=== PATIENT | female | born 1965 | race Caucasian/White ===

== ENCOUNTER 2023-07-09 12:22 | Outpatient (CLI) | payer OTHER | END 2023-07-09 12:23 | disposition home or self-care (01) | LOC: RAD 12:22 | PROVIDERS: ATTEND Nurse Practitioner Family | DX: J45.909 Unspecified asthma, uncomplicated (principal); M54.9 Dorsalgia, unspecified; R09.89 Other specified symptoms and signs involving the circulatory and respiratory systems | CPT/HCPCS: 71046 ==

== ENCOUNTER 2024-06-23 09:06 | Outpatient (CLI) | payer BC ==
[2024-06-23 10:37] LABS: #Basophils 0.03 10x3/uL (0.0-0.2); %Basophils 0.5 % (0.0-1.0); %Eosinophils 3.1 % (0.0-10.0); %Monocytes 7.2 % (0.0-10.0); Hematocrit 38.3 % (36.0-47.0); Hemoglobin 12.7 g/dL (12.0-16.0); Mean Corpuscular HGB CONC 33.2 g/dL (32.0-36.0); Mean Corpuscular Hemoglobin 29.4 pg (27.0-31.0); Mean Corpuscular Volume 88.7 fL (78.0-98.0); Mean Platelet Volume 9.8 fL (7.4-10.4); Platelet Count 288 10x3/uL (130-400); RBC Distribution Width 12.7 % (11.5-14.5); Red Blood Cell (RBC) Count 4.32 mill/uL (4.20-5.40)
[2024-06-23 10:55] LABS: INR-International Normal Ratio 0.9; PTT 30.7 sec (22.9-36.1); Prothrombin Time 12.5 sec (12.0-14.7)
[2024-06-23 11:03] LABS: ALT (SGPT) 25 U/L (8-55); AST (SGOT) 26 U/L (5-34); Albumin 4.2 g/dL (3.5-5.0); Alkaline Phosphatase 80 U/L (40-110); Anion Gap 9 mmol/L (10-20); BUN (Urea Nitrogen) 13 mg/dL (9.8-20.1); Bilirubin, Direct 0.1 mg/dL (0.1-0.3); Bilirubin, Total 0.4 mg/dL (0.2-1.2); Calc. Creatinine Clearance 0 mL/min (70-130); Calcium 9.3 mg/dL (7.8-10.44); Carbon Dioxide 30 mmol/L (22-29); Chloride 105 mmol/L (98-107); Estimated GFR 85; Glucose 95 mg/dL (70-105); Potassium 4.1 mmol/L (3.5-5.1); Protein, Total 6.8 g/dL (6.0-8.3); Sodium 140 mmol/L (136-145)
== END 2024-06-23 09:07 | disposition home or self-care (01) ==
LOC: LABBT 09:06
PROVIDERS: ATTEND Neurological Surgery
DX: Z01.818 Encounter for other preprocedural examination (principal); M54.12 Radiculopathy, cervical region
CPT/HCPCS: 80048; 80076; 85025; 85610; 85730; 93005; 93010

== ENCOUNTER 2024-06-30 05:42 | Day surgery (SDC) | payer BC ==
[2024-06-23 09:28] VITALS: BMI 28.5
[2024-06-30] MEDS ORDERED: Thrombin 5000 UNITS/5 ML VIAL ONE (06:10)
[2024-06-30] MEDS ORDERED: Rocuronium Bromide 10 MG/ML (10ML VIAL) ONE (06:46)
[2024-06-30] MEDS ORDERED: Lidocaine 1% PF 5 ML VIAL ONE (06:46)
[2024-06-30] MEDS ORDERED: fentaNYL PF 100 MCG/2 ML SYRINGE ONE (06:46)
[2024-06-30] MEDS ORDERED: PROPOFOL 20 ML ONE (06:46)
[2024-06-30] MEDS ORDERED: Ketamine In 0.9 % NaCl 50 MG/5 ML SYRINGE ONE (06:51)
[2024-06-30] MEDS ORDERED: Midazolam HCl 2 mg/2 ml Vial ONE (06:54)
[2024-06-30] MEDS ORDERED: Clindamycin/D5W 900 mg/50 ml Premix Bag ONE (06:54)
[2024-06-30] MEDS ORDERED: LevoFLOXacin D5W 500 mg (100 mL) BAG ONE (06:54)
[2024-06-30] MEDS ORDERED: Glycopyrrolate 0.2 MG/ML 5 ML SYRINGE ONE (07:10)
[2024-06-30] MEDS ORDERED: PHENYLEPHRINE-NS 100 MCG/ML 10 ML SYRINGE ONE (07:15)
[2024-06-30] MEDS ORDERED: Dexamethasone 20 MG/5 ML VIAL ONE (07:35)
[2024-06-30] MEDS ORDERED: Ondansetron PF 4 MG/2 ML Vial ONE (07:35)
[2024-06-30] MEDS ORDERED: SUGAMMADEX SODIUM 200 MG/2 ML VIAL ONE (08:17)
[2024-06-30] MEDS ORDERED: fentaNYL 50 mcg/mL 1 mL Vial ONE ×2 (08:45→09:33)
[2024-06-30] MEDS ORDERED: Cyclobenzaprine 10 MG TAB ONE (08:46)
[2024-06-30] MEDS ORDERED: HYDROmorphone 0.5 MG/0.5 ML SYRINGE ONE ×2 (08:46→09:19)
[2024-06-30] MEDS ORDERED: HYDROcodone/Acetaminophen 5/325 mg Tablet ONE (11:01)
== END 2024-06-30 11:20 | disposition home or self-care (01) ==
LOC: SDC 05:42
PROVIDERS: ATTEND Neurological Surgery
PROC: 0RG10A0 Fusion of Cervical Vertebral Joint with Interbody Fusion Device, Anterior Approach, Anterior Column, Open Approach (ICD-10-PCS; principal; 2024-06-30)
PROC: 0RB30ZZ Excision of Cervical Vertebral Disc, Open Approach (ICD-10-PCS; principal; 2024-06-30)
DX: M54.12 Radiculopathy, cervical region (principal); I10 Essential (primary) hypertension; E78.5 Hyperlipidemia, unspecified; Z78.0 Asymptomatic menopausal state; Z88.0 Allergy status to penicillin; Z88.2 Allergy status to sulfonamides; Z79.51 Long term (current) use of inhaled steroids; Z79.1 Long term (current) use of non-steroidal anti-inflammatories (NSAID); Z79.899 Other long term (current) drug therapy
CPT/HCPCS: C1713; C1889; J1100; J1171; J1956; J2250; J2405; J2704; J3010; J3490